=== PATIENT | male | born 1990 | race Caucasian/White ===

== ENCOUNTER → 2018-03-20 | Outpatient (CLI) | payer OTHER ==
[~2018-03-20] VITALS: Ht 152.4 cm; Wt 86.4 kg
[~2018-03-20] MED LIST: NO HOME MEDICATIONS
[2018-03-20 13:58] VITALS: BP 109/57
[2018-03-20 16:02] VITALS: BP 116/74
== END ==
LOC: AMSURD 13:16
DX: R11.2 Nausea with vomiting, unspecified (principal)
CPT/HCPCS: J2405; J2550; J7120

== ENCOUNTER → 2020-01-26 | Outpatient (CLI) | payer OTHER ==
[2018-03-20 16:02] VITALS: BP 116/74
== END ==
LOC: LAB 10:10
DX: R05 Cough (principal); Z20.828 Contact with and (suspected) exposure to other viral communicable diseases